=== PATIENT | female | born 1950 | race Caucasian/White ===

== ENCOUNTER 2024-05-01 15:31 | Emergency (ER) | payer MEDICARE, SELFPAY ==
[2024-05-01 15:32] VITALS: BP 161/80
--- NOTE | 2024-05-01 16:59 | ED.GENMED ---
History of Present Illness
General
Chief Complaint: Facial Problem
Source: patient
Time Seen by Provider: 05/01/24 16:30
History of Present Illness
History of Present Illness:
74-year-old female with past medical history of atrial fibrillation presenting to the emergency department for evaluation after she accidentally walked into a heavy glass door around 3 PM resulting in a nosebleed and left upper lip contusion.
Patient notes that the nosebleed stopped on its own. She endorses a very mild headache. Her main concern is that she is on Eliquis. Denies any loss of consciousness. No other injuries sustained.
Past History
Past History
ED Past Medical History: Arrthythmia
ED Past Surgical History: Cardiac
Social History
Tobacco: Non-smoker
Alcohol: None
Drug: None
Personal:
Living: with family
Review of Systems
Review of Systems
All Other Systems: ROS reviewed and negative except as documented in HPI and ROS
Phy Exam
Physical Exam
Physical Exam:
GENERAL: Alert , in no apparent distress
EYE: conjunctiva clear
Head: contusion to the left upper inner lip without any active bleeding. There is also a small contusion to the nasal bridge
NECK: Supple,
ENT: mmm. No epistaxis, no septal hematoma
LUNGS: no acute respiratory distress
NEUROLOGICAL: Alert and oriented
SKIN: Warm and dry, skin intact.
MUSCULOSKELETAL: well perfused.
PSYCH: Normal and appropriate interaction.
Scores
Heart Failure Risk
Heart Failure Risk Score: Not Applicable
Heart Score for Chest Pain Patients
STEMI patient?: Not applicable
Withdrawal Assessment of Alcohol
Withdrawal Assessment Completed?: Not applicable
Course
Orders/Labs/Results
Orders:
Orders
05/01/24 16:45
CT Head W/o Iv Contrast Urgent
Comment:
Reason For Exam: head injury, on eliquis
Vital Signs
Initial and Last Documented VS:
Initial Vital Signs
Temp Pulse Resp BP Pulse Ox
97.7 F 67 16 161/80 97
05/01/24 15:32 05/01/24 15:32 05/01/24 15:32 05/01/24 15:32 05/01/24 15:32
Last Documented Vital Signs
Temp Pulse Resp BP Pulse Ox
97.7 F 67 16 161/80 97
05/01/24 15:32 05/01/24 15:32 05/01/24 15:32 05/01/24 15:32 05/01/24 15:32
MDM/Problems Addressed
Differential Diagnosis Includes:
Contusion, concussion, intracranial bleeding
MDM/Problems Addressed:
74-year-old female presenting to the emergency department for evaluation after she walked into a heavy glass door resulting in nasal injury as well as upper lip contusion. Patient states her main concern is that she is anticoagulated due to her
history of atrial fibrillation and has a mild headache. CT of the head ordered although given the mechanism would not suspect intracranial bleeding but will obtain CT of the head for further evaluation.
*Radiology
Radiology exam reviewed: radiology read reviewed
*Pulse Oximetry
Patient hypoxic: no
*Critical Care Note
Total Time (30-74mins, 75-104mins- exclusive of procedures): Not Applicable
Patient Management
Escalation/DeEscalation of care consider admission/obs:
CT scan is negative for any acute pathologies. Patient is stable for discharge home. Aware of return precautions to the ER.
ED Attending Note
-
Portions of this chart may have been created with voice recognition software.� Occasional wrong word or��sound alike� substitutions may have occurred due to the inherent limitations of voice recognition software.
Discharge Plan
Departure
Patient Disposition: Home (Routine Discharge)
Date of Disposition: 05/01/24
Time of Disposition: 18:07
Patient with high blood pressure during this ER visit?: No
Discharge Problem:
Contusion of lip
Instructions: Contusion
Prescriptions:
No Action
methimazole 5 mg Tablet
2.5 mg PO Q48H
Patient Comments:
takes at HS
metoprolol succinate 25 mg Tablet Extended Release 24 Hr
25 mg PO HS
Eliquis 5 mg Tablet
5 mg PO BID
calcium carbonate-vitamin D3 600 mg-5 mcg (200 unit) Tablet
1 tab PO BID
uoappedt-gjf-hcco-FA-vit K-lut 8 mg iron-400 mcg-50 mcg Tablet
1 tab PO BID
Referrals:
Rubén Padilla DO [Family Provider] -
Interventions
Interventions:
*Risk Screen - Suicide Last Done: 05/01/24 18:42
*General Assessment Last Done: 05/01/24 18:42
*Neglect/Abuse Screening Last Done: 05/01/24 18:42
ED- Fall Risk Assessment Last Done: 05/01/24 17:09
*ED COVID-19 Vaccine History Last Done: 05/01/24 17:09
*Nursing Disposition Last Done: 05/01/24 18:42
ED- Neurological Assessment Last Done: 05/01/24 17:09
ED-Skin Assessment Last Done: 05/01/24 17:09
Discharge Date and Time
Discharge Date/Time: 05/01/24 18:45
Print Language: OCCITAN
== END 2024-05-01 18:45 | disposition home or self-care (01) ==
LOC: EMR 15:31
PROVIDERS: EMERGENCY PHYSICIAN Emergency Medicine; FAMILY PHYSICIAN Family Medicine
DX: S00.531A Contusion of lip, initial encounter (principal); S00.33XA Contusion of nose, initial encounter; W22.09XA Striking against other stationary object, initial encounter; I48.91 Unspecified atrial fibrillation; Z79.01 Long term (current) use of anticoagulants
CPT/HCPCS: 99284; 70450